=== PATIENT | female | born 1950 | race American Indian/Alaskan Native ===

== ENCOUNTER 2016-12-21 11:03 | Inpatient (IN) | payer MEDICARE, SELFPAY | END 2016-12-21 11:16 | disposition home or self-care (01) | DRG 305 | PROVIDERS: Admitting Provider Internal Medicine; PCP Internal Medicine; Visit Provider Internal Medicine | DX: I10 Essential (primary) hypertension (principal) | CPT/HCPCS: 85014; 85018 ==

== ENCOUNTER → 2019-12-04 16:41 | Outpatient (CLI) | payer SELFPAY | DX: I10 Essential (primary) hypertension (principal) ==

== ENCOUNTER 2021-02-04 16:38 | Emergency (ER) | payer SELFPAY ==
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
== END 2021-02-04 16:41 | disposition home or self-care (01) ==
LOC: ED 16:39
PROVIDERS: PCP Internal Medicine
DX: K31.9 Disease of stomach and duodenum, unspecified (principal)

== ENCOUNTER 2021-02-05 08:50 | Inpatient (IN) | payer SELFPAY | END 2021-02-05 08:56 | disposition home or self-care (01) | DRG 293 | LOC: ICU 08:52 | PROVIDERS: Admitting Provider Internal Medicine; PCP Internal Medicine; Referring Provider Emergency Medicine; Visit Provider Internal Medicine | DX: I50.9 Heart failure, unspecified (principal) ==

== ENCOUNTER 2021-02-28 08:18 | Inpatient (IN) | payer SELFPAY ==
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
== END 2021-02-28 17:00 | disposition home or self-care (01) | DRG 192 ==
PROVIDERS: Admitting Provider Internal Medicine; PCP Internal Medicine; Referring Provider Internal Medicine; Visit Provider Internal Medicine
DX: J44.0 Chronic obstructive pulmonary disease with (acute) lower respiratory infection (principal)
CPT/HCPCS: J0290; J0690; J2540; J3475

== ENCOUNTER 2022-03-19 05:55 | Inpatient (IN) | payer SELFPAY ==
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
[2022-05-28 11:52] LABS: D Dimer 1524 ng/ml (<500); PTT Partial Thromboplastin Tim 33 SECONDS (26-36); Prothrombin Time 11.2 SECONDS (10.1-12.7)
== END 2022-03-19 07:04 | disposition home or self-care (01) | DRG 566 ==
LOC: SSU 05:57
PROVIDERS: Admitting Provider Surgery; PCP Internal Medicine; Referring Provider Internal Medicine; Visit Provider Surgery
DX: M89.8X2 Other specified disorders of bone, upper arm (principal); W40.8XXA Explosion of other specified explosive materials, initial encounter; Y93.A5 Activity, obstacle course
CPT/HCPCS: 85379; 85610; 85730; C1713

== ENCOUNTER → 2022-09-15 10:18 | Outpatient (CLI) | payer SELFPAY | PROVIDERS: PCP Internal Medicine | DX: Z01.89 Encounter for other specified special examinations (principal) ==

== ENCOUNTER → 2022-09-15 10:31 | Outpatient (CLI) | payer MEDICARE, SELFPAY | PROVIDERS: PCP Internal Medicine | DX: Z01.89 Encounter for other specified special examinations (principal) | CPT/HCPCS: 76817; 76856 ==

== ENCOUNTER 2025-02-28 12:03 | Inpatient (IN) | payer MEDICARE, SELFPAY | END 2025-03-01 08:28 | disposition home or self-care (01) | DRG 923 | PROVIDERS: PCP Internal Medicine; Referring Provider Internal Medicine | DX: T75.00XA Unspecified effects of lightning, initial encounter (principal) ==